=== PATIENT | male | born 1965 | race Caucasian/White ===

== ENCOUNTER 2021-05-14 06:08 | Inpatient (IN) ==
[2021-05-14] MEDS ORDERED: CeFAZolin Syr 2,000MG/20 ML 2,000 MG/20 ML SYRINGE IVPB ONE (06:28)
[2021-05-14] MEDS ORDERED: Chlorhexidine Rinse 15 ML MOUTHWASH MM STA (06:28)
[2021-05-14] MEDS ORDERED: NiCARdipine 2.5 MG/10 ML Syringe IVPB ONE (06:41)
[2021-05-14] MEDS ORDERED: *HR* Midazolam HCl 5 MG/5 ML VIAL IVP ONE (06:48)
[2021-05-14] MEDS ORDERED: *HR* FentaNYL (PF) 1,000 MCG/20 ML VIAL ONE (06:48)
[2021-05-14] MEDS ORDERED: *HR* Rocuronium Bromide 50 MG/5 ML VIAL ONE (06:49)
[2021-05-14] MEDS ORDERED: *HR* Etomidate 20 MG/10 ML AMPUL IVP ONE (06:50)
[2021-05-14] MEDS ORDERED: Famotidine 20 MG/2 ML VIAL ONE (06:50)
[2021-05-14] MEDS ORDERED: Calcium Gluconate 1,000 MG/10 ML VIAL ONE (06:52)
[2021-05-14] MEDS ORDERED: Tranexamic Acid 1,000 MG/10 ML VIAL ONE ×2 (06:52→09:11)
[2021-05-14] MEDS ORDERED: Protamine Sulfate 250 MG/25 ML VIAL IVP ONE (06:52)
[2021-05-14] MEDS ORDERED: Aspirin 81 MG TAB.CHEW PO ONE (06:53)
[2021-05-14] MEDS ORDERED: Norepinephrine 4 MG in 0.9 % Sodium Chloride 250 ML IVC PRN (07:45)
[2021-05-14] MEDS ORDERED: Dextrose 50 % in Water (Vial) 30 ML, Sodium Bicarbonate 20 MEQ, Potassium Chloride 15 M... TH ONE (07:45)
[2021-05-14] MEDS ORDERED: Heparin 15,000 UNIT in 0.9 % Sodium Chloride 500 ML IV ONE (07:45)
[2021-05-14] MEDS ORDERED: Dextrose 50 % in Water (Vial) 30 ML, Sodium Bicarbonate 20 MEQ, Lidocaine 1% 5 ML, Insu... TH ONE ×3 (07:45)
[2021-05-14 08:10] LABS: ABG Base Excess -1 mEq/L (-2 to 3); ABG Chloride 106 mEq/L (98-107); ABG Glucose 94 mg/dL (60-95); ABG HCO3 25 mEq/L (21-27); ABG Ionized Calcium 1.25 mmol/L (1.15-1.35); ABG Oxygen Saturation 100 % (95-98); ABG PCO2 46 mmHg (35-45); ABG PH 7.35 pH Units (7.32-7.45); ABG PO2 369 mmHg (85-104); ABG TCO2 27 mEq/L (20-26)
[2021-05-14] MEDS ORDERED: niCARdipine 40 MG/200 ML MLS IVC ONE (08:35)
[2021-05-14 09:17] LABS: ABG Base Excess 0 mEq/L (-2 to 3); ABG Chloride 105 mEq/L (98-107); ABG Glucose 146 mg/dL (60-95); ABG HCO3 25 mEq/L (21-27); ABG Oxygen Saturation 99 % (95-98); ABG PCO2 43 mmHg (35-45); ABG PH 7.37 pH Units (7.32-7.45); ABG PO2 152 mmHg (85-104); ABG TCO2 26 mEq/L (20-26)
[2021-05-14 09:40] LABS: ABG Base Excess -1 mEq/L (-2 to 3); ABG Chloride 100 mEq/L (98-107); ABG Glucose 182 mg/dL (60-95); ABG HCO3 24 mEq/L (21-27); ABG Ionized Calcium 0.98 mmol/L (1.15-1.35); ABG Oxygen Saturation 100 % (95-98); ABG PCO2 41 mmHg (35-45); ABG PH 7.38 pH Units (7.32-7.45); ABG PO2 618 mmHg (85-104); ABG TCO2 25 mEq/L (20-26)
[2021-05-14 10:20] LABS: ABG Base Excess -2 mEq/L (-2 to 3); ABG Chloride 102 mEq/L (98-107); ABG Glucose 201 mg/dL (60-95); ABG HCO3 24 mEq/L (21-27); ABG Ionized Calcium 1.06 mmol/L (1.15-1.35); ABG Oxygen Saturation 100 % (95-98); ABG PCO2 44 mmHg (35-45); ABG PH 7.35 pH Units (7.32-7.45); ABG PO2 279 mmHg (85-104); ABG TCO2 25 mEq/L (20-26)
[2021-05-14 11:06] LABS: ABG Base Excess 0 mEq/L (-2 to 3); ABG Chloride 104 mEq/L (98-107); ABG Glucose 140 mg/dL (60-95); ABG HCO3 25 mEq/L (21-27); ABG Ionized Calcium 1.29 mmol/L (1.15-1.35); ABG Oxygen Saturation 100 % (95-98); ABG PCO2 45 mmHg (35-45); ABG PH 7.36 pH Units (7.32-7.45); ABG PO2 399 mmHg (85-104); ABG TCO2 27 mEq/L (20-26)
[2021-05-14 11:38] LABS: ABG Base Excess -3 mEq/L (-2 to 3); ABG Chloride 103 mEq/L (98-107); ABG Glucose 129 mg/dL (60-95); ABG HCO3 23 mEq/L (21-27); ABG Oxygen Saturation 100 % (95-98); ABG PCO2 44 mmHg (35-45); ABG PH 7.33 pH Units (7.32-7.45); ABG PO2 180 mmHg (85-104); ABG TCO2 24 mEq/L (20-26)
[2021-05-14] MEDS ORDERED: Potassium Chloride 40 MEQ/200 ML BAG IVPB PRN (12:04)
[2021-05-14] MEDS ORDERED: Naloxone 0.4 MG/ML INJ IVP PRN (12:04)
[2021-05-14] MEDS ORDERED: Insulin Regular, Human 100 UNIT/ML IV PRN (12:04)
[2021-05-14] MEDS ORDERED: Ondansetron 4 MG/2 ML VIAL IVP PRN (12:04)
[2021-05-14] MEDS ORDERED: Acetaminophen 650 MG RECTAL SUPP RC PRN (12:04)
[2021-05-14] MEDS ORDERED: *HR* Dextrose 50 % in Water (Vial) 50 ML VIAL IVP PRN (12:04)
[2021-05-14] MEDS ORDERED: Acetaminophen 325 MG TABLET PO PRN (12:04)
[2021-05-14] MEDS ORDERED: D5% in Water 250 ML IV BAG IV ONE (12:09)
[2021-05-14] MEDS ORDERED: *HR* Magnesium Sulfate 2 GM/50 ML PIGGYBACK IVPB ONE (12:09)
[2021-05-14] MEDS ORDERED: Tranexamic Acid 1,000 MG/10 ML VIAL IR ONE (12:09)
[2021-05-14] MEDS ORDERED: Lidocaine 2% Syringe 100 MG/5 ML IVP ONE (12:09)
[2021-05-14] MEDS ORDERED: *HR* Phenylephrine 10 MG/ML VIAL IVC ONE (12:09)
[2021-05-14] MEDS ORDERED: *HR* Heparin 10,000 UNIT/10 ML VIAL IR ONE (12:09)
[2021-05-14] MEDS ORDERED: Mannitol 25% vial 12.5 GM/50 ML VIAL IVPB ONE (12:09)
[2021-05-14] MEDS ORDERED: Heparin 1,000 UNITS/500 mL IV.SOLN IR ONE (12:09)
[2021-05-14] MEDS ORDERED: Albumin Human 25% 25 GM/100 ML IV.SOLN IVPB ONE (12:09)
[2021-05-14 12:15] LABS: ABG Base Excess 0 mEq/L (-2 to 3); ABG HCO3 25 mEq/L (21-27); ABG Oxygen Saturation 100 % (95-98); ABG PCO2 42 mmHg (35-45); ABG PH 7.39 pH Units (7.32-7.45); ABG PO2 238 mmHg (85-104); ABG TCO2 27 mEq/L (20-26); Blood Gas Modality ASSIST CONTROL; Blood Gas VT 600 cc
[2021-05-14] MEDS ORDERED: Norepinephrine 4 MG/254 ML IV.SOLN IVC SCH (12:15)
[2021-05-14] MEDS ORDERED: 0.9 % Sodium Chloride w KCl 20 MEQ/1,000 ML MLS IVC SCH (12:15)
[2021-05-14 12:23] LABS: Basophils # 0.1 K/mcL (0.0-0.2); Basophils % 0.3 %; Eosinophils # 0.1 K/mcL (0.0-0.6); Eosinophils % 0.8 %; Hematocrit 35.7 % (37.5-50.1); Hemoglobin 11.9 g/dL (12.9-16.9); Immature Granulocytes % 1.7 % (0-4); Lymphocytes # 2.9 K/mcL (0.6-4.6); Lymphocytes % 17.2 %; Mean Corpuscular HGB Conc 33.3 g/dL (31.6-35.5); Mean Platelet Volume 10.2 fL (9.4-12.4); Monocytes # 0.6 K/mcL (0.0-1.3); Monocytes % 3.6 %; Platelet Count 118 K/mcL (140-400); Red Blood Count 3.84 M/mcL (4.19-5.50); Red Cell Distribution Width 12.9 % (11.5-14.5); Segmented Neutrophils % 76.4 %
[2021-05-14 12:30] LABS: INR 1.4
[2021-05-14 12:33] LABS: Activated Partial Thrombo Time 32.5 Seconds (26.0-36.0)
[2021-05-14] MEDS ORDERED: Calcium Gluconate 1gm/50mL 1 GM/50 ML BAG IVPB PRN (12:33)
[2021-05-14 12:39] LABS: Prothrombin Time 16.2 Seconds (9.4-12.1)
[2021-05-14] MEDS: niCARdipine 20 MG/200 ML MLS IVC SCH ×2 (12:45→17:59)
[2021-05-14 12:46] LABS: BUN/Creatinine Ratio 11 (6-26); Blood Urea Nitrogen 11 mg/dL (6-20); Calcium 8.6 mg/dL (8.6-10.3); Carbon Dioxide 24 mEq/L (23-29); Chloride 109 mEq/L (98-107); Glucose 87 mg/dL (70-105); Magnesium 2.3 mg/dL (1.6-2.6); Osmolality,Calculated 289 (280-300); Potassium 3.2 mEq/L (3.5-5.1); Sodium 140 mEq/L (136-145); eGFR For African Americans > 60 (> 60); eGFR For Non-African Americans > 60 (> 60)
[2021-05-14] MEDS: *HR* OxyCODONE/APAP 5/325 TABLET PO PRN ×3 (12:52→22:04)
[2021-05-14] MEDS: *HR* FentaNYL (PF) 100 MCG/2 ML VIAL IVP PRN ×3 (12:53→22:04)
[2021-05-14] MEDS: Pantoprazole 40 MG VIAL IVP SCH (13:30)
[2021-05-14] MEDS: CeFAZolin 2 GM/120 ML BAG IVPB SCH (15:07)
[2021-05-14] MEDS: Albumin Human 5% 12.5 GM/250 ML IV.SOLN IVPB PRN ×2 (16:20→17:56)
[2021-05-14] MEDS: Albuterol 2.5 MG/3 ML NEBULIZER IH SCH ×2 (17:01→19:48)
[2021-05-14 17:16] LABS: ABG Base Excess 0 mEq/L (-2 to 3); ABG HCO3 27 mEq/L (21-27); ABG Oxygen Saturation 98 % (95-98); ABG PCO2 49 mmHg (35-45); ABG PH 7.34 pH Units (7.32-7.45); ABG PO2 105 mmHg (85-104); ABG TCO2 28 mEq/L (20-26); Blood Gas Pressure Support 10 cm H2O
[2021-05-14] MEDS: Metoclopramide 10 MG/2 ML VIAL IVP SCH (17:24)
[2021-05-14] MEDS: Ketorolac 15 MG/ML VIAL IVP SCH (17:25)
[2021-05-14] MEDS: Chlorhexidine Rinse 15 ML MOUTHWASH MM SCH (21:01)
[2021-05-14 22:20] LABS: ABG Base Excess 1 mEq/L (-2 to 3); ABG HCO3 27 mEq/L (21-27); ABG Oxygen Saturation 98 % (95-98); ABG PCO2 51 mmHg (35-45); ABG PH 7.33 pH Units (7.32-7.45); ABG PO2 106 mmHg (85-104); ABG TCO2 29 mEq/L (20-26)
[2021-05-15] MEDS: Albuterol 2.5 MG/3 ML NEBULIZER IH SCH ×2 (00:06→03:37)
[2021-05-15] MEDS: Ketorolac 15 MG/ML VIAL IVP SCH ×4 (00:11→17:33)
[2021-05-15] MEDS: CeFAZolin 2 GM/120 ML BAG IVPB SCH (00:12)
[2021-05-15] MEDS: Metoclopramide 10 MG/2 ML VIAL IVP SCH ×4 (00:12→17:34)
[2021-05-15] MEDS: Albumin Human 5% 12.5 GM/250 ML IV.SOLN IVPB PRN ×2 (00:59→01:21)
[2021-05-15 05:25] LABS: Basophils % 0.1 %; Red Blood Count 3.26 M/mcL (4.19-5.50); Red Cell Distribution Width 13.2 % (11.5-14.5)
[2021-05-15 05:27] LABS: Hematocrit 30.7 % (37.5-50.1); Hemoglobin 10.2 g/dL (12.9-16.9); Immature Granulocytes % 0.7 % (0-4); Immature Platelets 6.9 % (1.1-6.1); Lymphocytes # 1.1 K/mcL (0.6-4.6); Lymphocytes % 11.5 %; Mean Corpuscular HGB Conc 33.2 g/dL (31.6-35.5); Mean Corpuscular Hemoglobin 31.3 pg (28.0-33.3); Mean Corpuscular Volume 94.2 fL (83.0-100.0); Mean Platelet Volume 11.1 fL (9.4-12.4); Monocytes # 0.7 K/mcL (0.0-1.3); Monocytes % 7.7 %; Neutrophils # 7.6 K/mcL (1.6-8.9); White Blood Count 9.5 K/mcL (4.3-11.1)
[2021-05-15 05:28] LABS: Platelet Count 94 K/mcL (140-400)
[2021-05-15 05:31] LABS: INR 1.4; Prothrombin Time 16.2 Seconds (9.4-12.1)
[2021-05-15 05:34] LABS: Activated Partial Thrombo Time 33.4 Seconds (26.0-36.0)
[2021-05-15 05:49] LABS: BUN/Creatinine Ratio 15 (6-26); Blood Urea Nitrogen 12 mg/dL (6-20); Carbon Dioxide 24 mEq/L (23-29); Chloride 108 mEq/L (98-107); Glucose 151 mg/dL (70-105); Magnesium 2.1 mg/dL (1.6-2.6); Osmolality,Calculated 291 (280-300); Potassium 4.5 mEq/L (3.5-5.1); Sodium 139 mEq/L (136-145); eGFR For African Americans > 60 (> 60); eGFR For Non-African Americans > 60 (> 60)
[2021-05-15] MEDS: *HR* OxyCODONE/APAP 5/325 TABLET PO PRN ×3 (06:09→20:37)
[2021-05-15] MEDS: niCARdipine 20 MG/200 ML MLS IVC SCH ×2 (07:30→08:22)
[2021-05-15] MEDS: Chlorhexidine Rinse 15 ML MOUTHWASH MM SCH ×2 (08:21→20:37)
[2021-05-15] MEDS: Pantoprazole 40 MG VIAL IVP SCH (08:21)
[2021-05-15] MEDS ORDERED: Furosemide 20 MG/2 ML VIAL IVP SCH (09:00)
[2021-05-15] MEDS ORDERED: Aspirin Enteric Coated 81 MG Tablet PO SCH (09:00)
[2021-05-15] MEDS ORDERED: D5% in Water 1,000 ML IVC PRN (10:17)
[2021-05-15] MEDS ORDERED: *HR* FentaNYL (PF) 100 MCG/2 ML VIAL IVP PRN (10:17)
[2021-05-15] MEDS ORDERED: Insulin Regular, Human 100 UNIT/ML IV PRN (10:17)
[2021-05-15] MEDS ORDERED: Acetaminophen 325 MG TABLET PO PRN (10:17)
[2021-05-15] MEDS ORDERED: Dextrose Gel 15 GM/37.5 ML TUBE PO PRN ×2 (10:17)
[2021-05-15] MEDS ORDERED: *HR* Dextrose 50 % in Water (Vial) 50 ML VIAL IVP PRN (10:17)
[2021-05-15] MEDS ORDERED: Naloxone 0.4 MG/ML INJ IVP PRN (10:17)
[2021-05-15] MEDS ORDERED: Ondansetron 4 MG/2 ML VIAL IVP PRN (10:17)
[2021-05-15] MEDS ORDERED: *HR* Heparin 5,000 UNIT/ML VIAL ONE (14:15)
[2021-05-15] MEDS: *HR* Heparin 5,000 UNIT/ML VIAL SQ SCH ×2 (14:16→17:34)
[2021-05-15] MEDS: Insulin LISPRO 300 UNITS/3 ML VIAL SUBQ SCH ×2 (17:34→20:24)
[2021-05-15] MEDS: Furosemide 20 MG/2 ML VIAL IVP SCH (20:38)
[2021-05-16] MEDS: Metoclopramide 10 MG/2 ML VIAL IVP SCH ×4 (00:24→17:51)
[2021-05-16] MEDS: Ketorolac 15 MG/ML VIAL IVP SCH ×4 (00:24→17:51)
[2021-05-16 04:46] LABS: BUN/Creatinine Ratio 22 (6-26); Blood Urea Nitrogen 18 mg/dL (6-20); Calcium 8.5 mg/dL (8.6-10.3); Carbon Dioxide 26 mEq/L (23-29); Chloride 102 mEq/L (98-107); Glucose 108 mg/dL (70-105); Osmolality,Calculated 280 (280-300); Potassium 4.1 mEq/L (3.5-5.1); Sodium 134 mEq/L (136-145); eGFR For African Americans > 60 (> 60); eGFR For Non-African Americans > 60 (> 60)
[2021-05-16] MEDS: *HR* Heparin 5,000 UNIT/ML VIAL SQ SCH ×2 (06:14→17:51)
[2021-05-16] MEDS: *HR* OxyCODONE/APAP 5/325 TABLET PO PRN ×4 (06:23→20:37)
[2021-05-16] MEDS: Chlorhexidine Rinse 15 ML MOUTHWASH MM SCH ×2 (07:14→20:37)
[2021-05-16] MEDS: Aspirin Enteric Coated 81 MG Tablet PO SCH (07:14)
[2021-05-16] MEDS: *HR* Ticagrelor 90 MG TABLET PO SCH ×2 (07:14→20:37)
[2021-05-16] MEDS: Furosemide 20 MG/2 ML VIAL IVP SCH ×2 (07:15→20:37)
[2021-05-16] MEDS: Insulin LISPRO 300 UNITS/3 ML VIAL SUBQ SCH ×4 (07:17→22:06)
[2021-05-16] MEDS ORDERED: Pantoprazole 40 MG VIAL IVP SCH (09:00)
[2021-05-16 09:11] LABS: Basophils % 0.2 %; Eosinophils % 0.3 %; Hematocrit 30.7 % (37.5-50.1); Hemoglobin 10.4 g/dL (12.9-16.9); Immature Granulocytes % 0.4 % (0-4); Lymphocytes # 1.8 K/mcL (0.6-4.6); Lymphocytes % 15.6 %; Mean Corpuscular HGB Conc 33.9 g/dL (31.6-35.5); Mean Corpuscular Hemoglobin 32.1 pg (28.0-33.3); Mean Corpuscular Volume 94.8 fL (83.0-100.0); Mean Platelet Volume 11.4 fL (9.4-12.4); Monocytes # 0.8 K/mcL (0.0-1.3); Neutrophils # 8.7 K/mcL (1.6-8.9); Red Blood Count 3.24 M/mcL (4.19-5.50); Red Cell Distribution Width 13.3 % (11.5-14.5); Segmented Neutrophils % 76.5 %; White Blood Count 11.4 K/mcL (4.3-11.1)
[2021-05-16 09:25] LABS: Platelet Count 94 K/mcL (140-400)
[2021-05-17] MEDS: *HR* OxyCODONE/APAP 5/325 TABLET PO PRN ×4 (00:48→16:49)
[2021-05-17] MEDS: Ketorolac 15 MG/ML VIAL IVP SCH ×5 (00:48→23:22)
[2021-05-17] MEDS: Metoclopramide 10 MG/2 ML VIAL IVP SCH ×4 (00:49→16:49)
[2021-05-17] MEDS: *HR* Heparin 5,000 UNIT/ML VIAL SQ SCH ×2 (06:15→16:49)
[2021-05-17] MEDS: Insulin LISPRO 300 UNITS/3 ML VIAL SUBQ SCH ×4 (08:13→20:44)
[2021-05-17] MEDS: Chlorhexidine Rinse 15 ML MOUTHWASH MM SCH ×2 (08:13→20:40)
[2021-05-17] MEDS: *HR* Ticagrelor 90 MG TABLET PO SCH ×2 (08:14→20:40)
[2021-05-17] MEDS: lisinopriL 5 MG TABLET PO SCH (08:14)
[2021-05-17] MEDS: Furosemide 20 MG/2 ML VIAL IVP SCH (08:14)
[2021-05-17] MEDS: Aspirin Enteric Coated 81 MG Tablet PO SCH (08:14)
[2021-05-18] MEDS: *HR* Heparin 5,000 UNIT/ML VIAL SQ SCH ×2 (06:00→17:51)
[2021-05-18] MEDS: Ketorolac 15 MG/ML VIAL IVP SCH ×4 (06:01→23:45)
[2021-05-18 07:13] LABS: Basophils % 0.3 %; Hemoglobin 9.5 g/dL (12.9-16.9); Lymphocytes % 27.4 %; Mean Corpuscular Volume 92.5 fL (83.0-100.0); Red Cell Distribution Width 13.2 % (11.5-14.5)
[2021-05-18 07:15] LABS: Eosinophils # 0.1 K/mcL (0.0-0.6); Hematocrit 28.2 % (37.5-50.1); Immature Granulocytes % 0.6 % (0-4); Immature Platelets 8.5 % (1.1-6.1); Lymphocytes # 2.1 K/mcL (0.6-4.6); Mean Corpuscular HGB Conc 33.7 g/dL (31.6-35.5); Mean Corpuscular Hemoglobin 31.1 pg (28.0-33.3); Mean Platelet Volume 11.1 fL (9.4-12.4); Monocytes # 0.7 K/mcL (0.0-1.3); Monocytes % 9.6 %; Neutrophils # 4.7 K/mcL (1.6-8.9); Platelet Count 129 K/mcL (140-400); Red Blood Count 3.05 M/mcL (4.19-5.50); Segmented Neutrophils % 61.1 %; White Blood Count 7.7 K/mcL (4.3-11.1)
[2021-05-18 07:34] LABS: BUN/Creatinine Ratio 23 (6-26); Blood Urea Nitrogen 20 mg/dL (6-20); Calcium 8.7 mg/dL (8.6-10.3); Carbon Dioxide 24 mEq/L (23-29); Chloride 103 mEq/L (98-107); Glucose 96 mg/dL (70-105); Osmolality,Calculated 284 (280-300); Potassium 3.7 mEq/L (3.5-5.1); Sodium 136 mEq/L (136-145); eGFR For African Americans > 60 (> 60); eGFR For Non-African Americans > 60 (> 60)
[2021-05-18] MEDS: Aspirin Enteric Coated 81 MG Tablet PO SCH (07:41)
[2021-05-18] MEDS: *HR* Ticagrelor 90 MG TABLET PO SCH ×2 (07:41→20:17)
[2021-05-18] MEDS: Insulin LISPRO 300 UNITS/3 ML VIAL SUBQ SCH ×4 (07:41→20:15)
[2021-05-18] MEDS: lisinopriL 5 MG TABLET PO SCH (07:41)
[2021-05-18] MEDS: Chlorhexidine Rinse 15 ML MOUTHWASH MM SCH ×2 (07:41→20:17)
[2021-05-19] MEDS: *HR* Heparin 5,000 UNIT/ML VIAL SQ SCH (06:15)
[2021-05-19] MEDS: Ketorolac 15 MG/ML VIAL IVP SCH (06:15)
[2021-05-19] MEDS: Aspirin Enteric Coated 81 MG Tablet PO SCH (07:22)
[2021-05-19] MEDS: lisinopriL 5 MG TABLET PO SCH (07:22)
[2021-05-19] MEDS: Chlorhexidine Rinse 15 ML MOUTHWASH MM SCH (07:22)
[2021-05-19] MEDS: *HR* Ticagrelor 90 MG TABLET PO SCH (07:22)
[2021-05-19 07:50] LABS: Basophils % 0.4 %; Eosinophils # 0.1 K/mcL (0.0-0.6); Eosinophils % 1.8 %; Hematocrit 27.9 % (37.5-50.1); Hemoglobin 9.7 g/dL (12.9-16.9); Immature Granulocytes % 1.6 % (0-4); Lymphocytes # 2.1 K/mcL (0.6-4.6); Lymphocytes % 28.6 %; Mean Corpuscular HGB Conc 34.8 g/dL (31.6-35.5); Mean Corpuscular Hemoglobin 32.3 pg (28.0-33.3); Mean Platelet Volume 10.9 fL (9.4-12.4); Monocytes # 0.8 K/mcL (0.0-1.3); Monocytes % 10.8 %; Neutrophils # 4.2 K/mcL (1.6-8.9); Platelet Count 158 K/mcL (140-400); Red Cell Distribution Width 13.3 % (11.5-14.5); Segmented Neutrophils % 56.8 %; White Blood Count 7.3 K/mcL (4.3-11.1)
[2021-05-19] MEDS: Insulin LISPRO 300 UNITS/3 ML VIAL SUBQ SCH (08:06)
[2021-05-19 08:25] LABS: BUN/Creatinine Ratio 28 (6-26); Blood Urea Nitrogen 25 mg/dL (6-20); Calcium 8.9 mg/dL (8.6-10.3); Carbon Dioxide 22 mEq/L (23-29); Chloride 105 mEq/L (98-107); Glucose 94 mg/dL (70-105); Osmolality,Calculated 288 (280-300); Potassium 4.1 mEq/L (3.5-5.1); Sodium 137 mEq/L (136-145); eGFR For African Americans > 60 (> 60); eGFR For Non-African Americans > 60 (> 60)
[2021-05-19 10:45] VITALS: BP 99/62; PULSE 75; TEMP 98.5; O2SAT 99
== END 2021-05-19 11:38 | disposition home or self-care (01) | DRG 166 ==
LOC: SAMDAY 06:08 → ICNU 10:40 → 2NNU 05-15 10:27
PROVIDERS: ADMIT Thoracic Surgery (Cardiothoracic Vascular Surgery); ATTEND Thoracic Surgery (Cardiothoracic Vascular Surgery)